=== PATIENT | male | born 1960 | race Caucasian/White ===

== ENCOUNTER 2020-07-28 09:28 | Outpatient (RCR) | payer OTHER, SELFPAY ==
[2013-06-16 09:13] VITALS: BMI 19.8
== END 2020-09-06 23:59 ==
LOC: IMMUN 09:28
PROVIDERS: PCP Family Medicine; Referring Provider Family Medicine; Visit Provider Family Medicine
DX: Z23 Encounter for immunization (principal)
CPT/HCPCS: 0001A; 0002A; 91300